=== PATIENT | female | born 1995 | race Hispanic/Latino ===

== ENCOUNTER 2021-03-13 17:15 | Emergency (ER) | payer OTHER ==
[2021-03-14 18:27] LABS: SARS-CoV-2 PCR by NAA DETECTED (NotDetected)
== END 2021-03-13 18:05 | disposition home or self-care (01) ==
LOC: BURERS 17:15
DX: O98.512 Other viral diseases complicating pregnancy, second trimester (principal); U07.1 COVID-19; Z3A.15 15 weeks gestation of pregnancy
CPT/HCPCS: 99284; U0003; U0005